=== PATIENT | female | born 1945 | race Caucasian/White ===

== ENCOUNTER 2018-03-10 23:13 | Emergency (ER) | payer OTHER ==
--- NOTE | 2018-03-10 23:40 | EDPHY ---
H & P Stated Complaint: Edema in bilateral legs starting early AM, recent long train travel Time Seen by Provider: 03/10/18 23:26 HPI/ROS: Chief Complaint: Foot swelling HPI: 72-year-old woman with a history of hypertension, hyperlipidemia. Patient recently did to the train from [place] to [place] which was a 2 day during the. She is here visiting her daughter. This morning she noticed that both of her feet were swollen which is atypical for her. Swelling seemed to be symmetrical. No chest pain or shortness of breath. No cough. No history of edema in the past. She does state that she had been sitting up in the train was unable to completely lay flat. She normally sleeps on 2 pillows which has not changed for her in years. No dyspnea on exertion. No cough. No fevers or chills. No increasing thirst or urination. ROS: 10 point Review of Systems is negative except as noted in the HPI. PMH: Hypertension, hyperlipidemia Social History: No smoking, no alcohol, no recreational drug use Family History: non-contributory Physical Exam: Gen: Awake, Alert, No Distress HEENT: Nose: no rhinorrhea Eyes: PERRLA, EOMI Mouth: Moist mucosa Neck: Supple, no JVD Chest: nontender, lungs clear to auscultation Heart: S1, S2 normal, no murmur Abd: Soft, non-tender, no guarding Back: no CVA tenderness, no midline tenderness Ext: 2+ pitting edema of her bilateral feet, does not progress proximal to the ankles. His right calf does measure 1.5 cm in greater diameter than her left. There is no calf tenderness. There is no erythema. edema, non-tender Skin: no rash Neuro: CN II-XII intact, Sensation grossly intact, Strength 5/5 in bilateral upper and lower extremities - Medical/Surgical History Hx Asthma: No Hx Chronic Respiratory Disease: No Hx Diabetes: No Hx Cardiac Disease: No Hx Renal Disease: No Hx Cirrhosis: No Hx Alcoholism: No Hx HIV/AIDS: No Hx Splenectomy or Spleen Trauma: No Other PMH: HTN - Social History Smoking Status: Never smoked Constitutional: Initial Vital Signs Temperature (C) 36.5 C 03/10/18 23:16 Heart Rate 71 03/10/18 23:16 Respiratory Rate 20 03/10/18 23:16 Blood Pressure 167/86 H 03/10/18 23:16 O2 Sat (%) 95 03/10/18 23:16 O2 Delivery Mode Room Air Allergies/Adverse Reactions: aspirin Allergy (Verified 03/10/18 23:22) Home Medications: Medication Instructions Recorded Atenolol 03/10/18 CALCI-CHEW 03/10/18 DIAZEPAM 03/10/18 Flaxseed Oil 03/10/18 Glucosamine 03/10/18 Ibuprofen 03/10/18 Ranitidine HCl 03/10/18 Rosuvastatin Calcium 03/10/18 Verapamil 03/10/18 Vitamin B-12 03/10/18 ZYRTEC 03/10/18 traZODone 03/10/18 Medical Decision Making - Diagnostics Imaging Results: Imaging Impressions Extremity Venous Study 03/10/18 23:40 Impression: There is no sonographic evidence of deep or superficial vein thrombosis in the right lower extremity. Findings were discussed with Ruben Gilliam MD at 0:02, on 03/11/2018. Imaging: Discussed imaging studies w/ will call clerk Radiologist ED Course/Re-evaluation: 72-year-old woman presenting with pedal edema after a 2 [address] ride. Unfortunately 1 cap is measuring larger than the other which she says atypical. She has not have any other findings suggestive of DVT. Ultrasound here is negative for DVT per Dr. Arciniega. Laboratory evaluations are unremarkable. Symptoms likely secondary to deep edema. Will discharge with follow-up with local primary care, return for any concerns. - Data Points Laboratory Results: Laboratory Results 03/11/18 00:05 03/10/18 23:45 03/11/18 03/10/18 00:05 23:45 WBC 6.02 10^3/uL 10^3/uL (3.80-9.50) RBC 4.10 10^6/uL L 10^6/uL (4.18-5.33) Hgb 12.3 g/dL L g/dL (12.6-16.3) Hct 37.8 % L % (38.0-47.0) MCV 92.2 fL fL (81.5-99.8) MCH 30.0 pg pg (27.9-34.1) MCHC 32.5 g/dL g/dL (32.4-36.7) RDW 12.1 % % (11.5-15.2) Plt Count 261 10^3/uL 10^3/uL (150-400) MPV 10.5 fL fL (8.7-11.7) Neut % (Auto) 50.1 % % (39.3-74.2) Lymph % (Auto) 32.9 % % (15.0-45.0) Menard % (Auto) 11.6 % % (4.5-13.0) Eos % (Auto) 4.2 % % (0.6-7.6) Baso % (Auto) 1.0 % % (0.3-1.7) Nucleat RBC Rel Count 0.0 % % (0.0-0.2) Absolute Neuts (auto) 3.02 10^3/uL 10^3/uL (1.70-6.50) Absolute Lymphs (auto) 1.98 10^3/uL 10^3/uL (1.00-3.00) Absolute Monos (auto) 0.70 10^3/uL 10^3/uL (0.30-0.80) Absolute Eos (auto) 0.25 10^3/uL 10^3/uL (0.03-0.40) Absolute Basos (auto) 0.06 10^3/uL 10^3/uL (0.02-0.10) Absolute Nucleated RBC 0.00 10^3/uL 10^3/uL (0-0.01) Immature Gran % 0.2 % % (0.0-1.1) Immature Gran # 0.01 10^3/uL 10^3/uL (0.00-0.10) Sodium 146 mEq/L H mEq/L (135-145) Potassium 4.4 mEq/L mEq/L (3.3-5.0) Chloride 110 mEq/L mEq/L (97-110) Carbon Dioxide 23 mEq/l mEq/l (22-31) Anion Gap 13 mEq/L mEq/L (8-16) BUN 22 mg/dL mg/dL (7-23) Creatinine 1.0 mg/dL mg/dL (0.6-1.0) Estimated GFR 54 Glucose 96 mg/dL mg/dL (70-100) Calcium 8.9 mg/dL mg/dL (8.5-10.4) Total Bilirubin 0.7 mg/dL mg/dL (0.1-1.4) AST 34 IU/L IU/L (14-46) ALT 36 IU/L IU/L (9-52) Alkaline Phosphatase 63 IU/L IU/L (38-126) Total Protein 7.7 g/dL g/dL (6.3-8.2) Albumin 4.2 g/dL g/dL (3.5-5.0) Departure - Departure Disposition: Home, Routine, Self-Care Clinical Impression: Peripheral edema Condition: Good Instructions: Leg Edema (ED) Additional Instructions: Follow up with primary care physician in 3-4 days if symptoms are not improving. Return to the emergency department for worsening swelling, shortness of breath, cough, fevers, chills, or any other concerns. Referrals: Kim Alcantara MD [place] [place] - As per Instructions
[2018-03-11 00:33] LABS: PLATELET COUNT 261 10^3/uL (150-400)
[2018-03-11 01:16] VITALS: BP 153/68
== END 2018-03-11 01:15 | disposition home or self-care (01) ==
DX: R60.0 Localized edema (principal); I10 Essential (primary) hypertension